=== PATIENT | male | born 1995 | race Native Hawaiian/Other Pacific Islander ===

== ENCOUNTER 2017-03-11 12:21 | Emergency (ER) | payer OTHER ==
[~2017-03-11] VITALS: Ht 190.5 cm; Wt 113.4 kg
[2017-03-11 13:03] LABS: PLATELET COUNT 166 K/uL (142-355)
[2017-03-11 13:13] LABS: POTASSIUM 3.5 mmol/L (3.6-5.2); SODIUM 138 mmol/L (136-145)
== END 2017-03-11 13:48 | disposition home or self-care (01) ==
LOC: ED 12:21
DX: R10.13 Epigastric pain (principal); L03.114 Cellulitis of left upper limb; T63.301A Toxic effect of unspecified spider venom, accidental (unintentional), initial encounter
CPT/HCPCS: 36415; 80053; 85027; 86318; 87070; 87077; 87185; 87186; 87205; 99283

== ENCOUNTER 2021-07-07 11:58 | Emergency (ER) | payer OTHER ==
[~2021-07-07] VITALS: Ht 190.5 cm; Wt 127.0 kg
[2021-07-07 13:00] VITALS: BP 139/79; TEMP 98.8
== END 2021-07-07 13:02 | disposition home or self-care (01) ==
LOC: ED 11:58
PROC: 0HQ0XZZ Repair Scalp Skin, External Approach (ICD-10-PCS; principal; 2021-07-07)
DX: S01.01XA Laceration without foreign body of scalp, initial encounter (principal); S09.8XXA Other specified injuries of head, initial encounter; W20.8XXA Other cause of strike by thrown, projected or falling object, initial encounter; Y92.89 Other specified places as the place of occurrence of the external cause
CPT/HCPCS: 90471; 90715; 96372; 99283; J0696; J1885; J7040